=== PATIENT | female | born 1955 | race Caucasian/White ===

== ENCOUNTER 2021-04-29 23:57 | Inpatient (IN) | payer MEDICAID ==
[~2021-04-29] VITALS: Ht 167.6 cm; Wt 65.9 kg
[2021-04-30] MEDS ORDERED: ondansetron/PF 4mg/2ml inj IV ONE (00:10)
[2021-04-30] MEDS: morphine 4 MG/ML inj SYRINge IV PRN ×3 (00:17→06:27)
[2021-04-30 00:42] LABS: BASOPHILS % (AUTO) 0.3 % (0-1); EOSINOPHILS # (AUTO) 0.1 X10'3 (0-0.9); EOSINOPHILS % (AUTO) 0.6 % (0-6); HEMATOCRIT 46.4 % (35.0-45.0); HEMOGLOBIN 16.3 g/dl (12.0-16.0); LYMPHOCYTES # (AUTO) 1.7 X10'3 (1.1-4.8); LYMPHOCYTES % (AUTO) 17.9 % (21-51); MEAN CORPUSCULAR HEMOGLOBIN 34.4 PG (27.0-31.0); MEAN CORPUSCULAR HGB CONC 35.2 g/dL (33.0-36.5); MEAN CORPUSCULAR VOLUME 97.8 FL (78-98); MEAN PLATELET VOLUME 8.4 FL (7.4-10.4); MONOCYTES # (AUTO) 0.5 X10'3 (0-0.9); MONOCYTES % (AUTO) 5.4 % (2-12); NEUTROPHILS # (AUTO) 7.1 X10'3 (1.8-7.7); NEUTROPHILS % (AUTO) 75.8 % (42-75); PLATELET COUNT 243 X10'3 (140-440); RED BLOOD COUNT 4.74 X10'6 (4.20-5.60); RED CELL DISTRIBUTION WIDTH 14.5 % (11.5-14.5); WHITE BLOOD COUNT 9.4 X10'3 (4.5-11.0)
[2021-04-30 00:54] LABS: ALANINE AMINOTRANSFERASE 28 U/L (12-78); ALBUMIN 3.7 G/DL (3.4-5.0); ALKALINE PHOSPHATASE 105 IU/L (46-116); ANION GAP 15 (8-16); ASPARTATE AMINO TRANSFERASE 22 U/L (10-37); BILIRUBIN,TOTAL 0.4 MG/DL (0.1-1.0); BLOOD UREA NITROGEN 4 MG/DL (7-18); BUN/CREATININE RATIO 7.1 (6.6-38.0); CALCIUM 8.3 MG/DL (8.5-10.1); CHLORIDE 98 MMOL/L (99-107); CREATININE 0.56 MG/DL (0.40-0.90); GLUCOSE 88 MG/DL (70-104); POTASSIUM 3.5 MMOL/L (3.5-5.1); SODIUM 133 MMOL/L (135-145); TOTAL CARBON DIOXIDE 20.5 MMOL/L (24-32); TOTAL PROTEIN 7.3 G/DL (6.4-8.2); eGFR > 90 ML/MIN
[2021-04-30] MEDS ORDERED: morphine 2 MG/ML inj. syringe IV PRN (01:35)
[2021-04-30] MEDS ORDERED: acetaminophen 325mg tablet PO PRN (01:35)
[2021-04-30 02:13] LABS: CLARITY,URINE CLEAR (Clear); COLOR,URINE STRAW (Yellow); GLUCOSE, URINE NEGATIVE (Neg); KETONES,URINE NEGATIVE (Neg); LEUKOCYTE ESTERASE ,URINE NEGATIVE (Neg); NITRITES, URINE NEGATIVE (Neg); OCCULT BLOOD,URINE SMALL (Neg); PROTEIN,URINE NEGATIVE (Neg); UROBILINOGEN,URINE 0.2 E.U/dL (0.2-1.0)
[2021-04-30 02:15] LABS: UA COLLECTION TYPE STRAIGHT CATH
[2021-04-30 03:52] LABS: RBC,URINE 0-2 /HPF (0-2); WBC,URINE NONE SEEN /HPF (0-4)
[2021-04-30 03:53] LABS: BACTERIA,URINE NONE SEEN /HPF (Neg); SQUAMOUS EPITHELIAL CELL,UR FEW /LPF (FEW)
[2021-04-30] MEDS ORDERED: PRE5T PO (05:28)
--- NOTE | 2021-04-30 06:54 | NUR ---
Patient in room ED 5. I have received report from Brianna SHELL and had the opportunity to ask questions and assume patient care.
[2021-04-30 07:30] VITALS: BP 110/63
[2021-04-30] MEDS: docusate sod 100mg capsule PO SCH ×2 (08:00→19:08)
[2021-04-30] MEDS: HYDROcodone/acetaminophen 5mg/325mg tablet PO PRN (08:58)
[2021-04-30 10:00] VITALS: BP 105/57
[2021-04-30] MEDS: morphine 2 MG/ML inj. syringe IV PRN ×3 (10:58→21:45)
[2021-04-30] MEDS ORDERED: ALB0.5UD IH (11:40)
--- NOTE | 2021-04-30 11:42 | NUR ---
PAGER ID: [phone] MESSAGE: rey monroy [phone] RE: Dionne Cedillo [id number]. Pt daughter requesting coag before surgery. Thank you
[2021-04-30] MEDS ORDERED: haloperidol lactate 5mg/ml inj IM PRN (11:55)
[2021-04-30] MEDS ORDERED: LORazepam 1 MG tablet PO PRN (11:55)
[2021-04-30] MEDS ORDERED: dextrose 50%-water 50ml dispensing syringe IV PRN (11:55)
[2021-04-30] MEDS ORDERED: thiamine 100mg/ml 2ml inj. IV ONE (11:55)
[2021-04-30] MEDS ORDERED: LORazepam 2 mg/ml vial IV PRN (11:55)
[2021-04-30] MEDS ORDERED: haloperidol 5mg tablet PO PRN (11:55)
[2021-04-30] MEDS ORDERED: thiamine inj. 100 MG in normal saline 100ml IV soln 99 ML IV ONE (12:05)
[2021-04-30] MEDS: nicotine 14mg patch - 24hr TD SCH (12:36)
[2021-04-30 12:53] LABS: PARTIAL THROMBOPLASTIN TIME 29 SECONDS (22-32)
[2021-04-30] MEDS ORDERED: thiamine 100mg tablet PO ONE (12:55)
[2021-04-30] MEDS: HYDROcodone/acetaminophen 10/325mg tab PO PRN ×2 (13:00→19:08)
[2021-04-30 13:07] VITALS: BP 115/67
[2021-04-30] MEDS ORDERED: ringers solution, lactated 500ml IV solution IV ONE (13:20)
[2021-04-30] MEDS: ringers solution, lacted 1,000 ML IV SCH (14:00)
[2021-04-30] MEDS ORDERED: ondansetron/PF 4mg/2ml inj IV PRN (16:40)
--- NOTE | 2021-04-30 17:26 | NUR ---
Pt states she is very tired. While lying still pts pain is tolerable. If patient moves slightly or coughs patient is in severe pain. OR charge nurse notified primary rn patient is now scheduled for surgery tomorrow 05/01 @ 0900. Pt has dinner tray ordered, NPO at midnight. Will continue to monitor patient closely.
[2021-04-30 18:00] VITALS: BP 117/58
--- NOTE | 2021-04-30 18:10 | NUR ---
Patient in room ORTHO 4024. I have received report from Jazzy SHELL and had the opportunity to ask questions and assume patient care.
--- NOTE | 2021-04-30 18:10 | NUR ---
Problems reprioritized. Patient report given, questions answered & plan of care reviewed with Heaven SHELL.
[2021-04-30 22:00] VITALS: BP 116/63
[2021-05-01] VITALS (15 sets, daily range): BP systolic 103–156; BP diastolic 49–71
[2021-05-01] MEDS: HYDROcodone/acetaminophen 10/325mg tab PO PRN ×4 (01:08→23:40)
[2021-05-01] MEDS: ringers solution, lacted 1,000 ML IV SCH ×3 (01:09→23:35)
[2021-05-01] MEDS: morphine 2 MG/ML inj. syringe IV PRN (03:12)
--- NOTE | 2021-05-01 06:36 | NUR ---
Problems reprioritized. Patient report given, questions answered & plan of care reviewed with Page SHELL and Wale SHELL.
[2021-05-01] MEDS: pantoprazole 40mg Tablet.DR PO SCH (06:58)
[2021-05-01 07:53] LABS: BASOPHILS % (AUTO) 0.5 % (0-1); EOSINOPHILS # (AUTO) 0.2 X10'3 (0-0.9); EOSINOPHILS % (AUTO) 2.2 % (0-6); HEMATOCRIT 46.5 % (35.0-45.0); HEMOGLOBIN 15.7 g/dl (12.0-16.0); LYMPHOCYTES # (AUTO) 2.1 X10'3 (1.1-4.8); LYMPHOCYTES % (AUTO) 25.6 % (21-51); MEAN CORPUSCULAR HEMOGLOBIN 33.5 PG (27.0-31.0); MEAN CORPUSCULAR HGB CONC 33.8 g/dL (33.0-36.5); MEAN CORPUSCULAR VOLUME 99.1 FL (78-98); MONOCYTES # (AUTO) 0.6 X10'3 (0-0.9); MONOCYTES % (AUTO) 7.2 % (2-12); NEUTROPHILS # (AUTO) 5.3 X10'3 (1.8-7.7); NEUTROPHILS % (AUTO) 64.5 % (42-75); PLATELET COUNT 212 X10'3 (140-440); RED BLOOD COUNT 4.69 X10'6 (4.20-5.60); RED CELL DISTRIBUTION WIDTH 14.5 % (11.5-14.5); WHITE BLOOD COUNT 8.3 X10'3 (4.5-11.0)
[2021-05-01] MEDS: docusate sod 100mg capsule PO SCH ×2 (08:00→20:00)
[2021-05-01 08:26] LABS: ALBUMIN 2.8 G/DL (3.4-5.0); ANION GAP 9 (8-16); BLOOD UREA NITROGEN 6 MG/DL (7-18); CALCIUM 8.4 MG/DL (8.5-10.1); CHLORIDE 105 MMOL/L (99-107); GLUCOSE 82 MG/DL (70-104); POTASSIUM 3.6 MMOL/L (3.5-5.1); SODIUM 140 MMOL/L (135-145); TOTAL CARBON DIOXIDE 26.2 MMOL/L (24-32); eGFR > 90 ML/MIN
[2021-05-01] MEDS ORDERED: dexamethasone sod phosphate 10mg/ml inj ONE (08:45)
[2021-05-01] MEDS ORDERED: desflurane 240ml liquid inh. IH ONE (08:45)
[2021-05-01] MEDS ORDERED: sevoflurane 250ml liquid IH ONE (08:45)
[2021-05-01] MEDS ORDERED: fentaNYL/PF 50MCG/1 ML 2ML syringe ONE (08:47)
[2021-05-01] MEDS ORDERED: midazolam 1 mg/ML 2ml injection ONE (08:48)
[2021-05-01] MEDS ORDERED: ceFAZolin 1000mg inj ONE ×2 (08:55)
[2021-05-01] MEDS ORDERED: propofol inj 20 ML IV ONE (09:06)
[2021-05-01] MEDS ORDERED: LIDOcaine 2% (20mg/ml) 5ml vial ONE (09:06)
[2021-05-01] MEDS ORDERED: ondansetron/PF 4mg/2ml inj ONE (09:07)
[2021-05-01] MEDS ORDERED: ringers solution, lacted 1,000 ML IV SCH (09:25)
[2021-05-01] MEDS ORDERED: fentaNYL/PF 50MCG/1 ML 2ML syringe IV PRN ×2 (09:25)
[2021-05-01] MEDS ORDERED: ondansetron/PF 4mg/2ml inj IV PRN (09:25)
[2021-05-01] MEDS ORDERED: morphine 2 MG/ML inj. syringe IV PRN (09:25)
[2021-05-01] MEDS ORDERED: morphine 4 MG/ML inj SYRINge IV PRN (09:25)
[2021-05-01] MEDS ORDERED: labetalol 20mg/4ml (5mg/ml) syringe IV PRN (09:25)
[2021-05-01] MEDS ORDERED: hydrALAZINE 20mg/ml inj. IV PRN (09:25)
[2021-05-01] MEDS ORDERED: ROPIVAcaine 0.5% (5mg/ml) 30ml vial ONE ×2 (09:34→09:55)
--- NOTE | 2021-05-01 10:06 | NUR ---
Received from OR via , accompanied by Anesthesiologist DR PADGETT and report given by Anesthesiolgist. AWAKENS TO VOICE. VITALS STABLE. DRESSING DI. JACQUELYN PAIN. STONE WITH CLEAR URINE.
--- NOTE | 2021-05-01 10:56 | NUR ---
Report called to receiving nurse. Transferred via [facility] . Special Issues communicated to receiving nurse.AWAKE AND ORIENTED. VITALS STABLE. DRESSING DI. JACQUELYN PAIN. TO ORTHO RM 4024A AT THIS TIME.
[2021-05-01] MEDS: nicotine 14mg patch - 24hr TD SCH (11:14)
[2021-05-01] MEDS ORDERED: albuterol 2.5 MG/3 ML nebule NEB PRN (12:05)
[2021-05-01] MEDS: predniSONE 5mg tablet PO SCH (12:29)
[2021-05-01] MEDS: ceFAZolin/D5W- 1GM premix 50 ML IV SCH ×2 (16:32→23:36)
--- NOTE | 2021-05-01 17:10 | NUR ---
Pt refused accucheck stated she is not diabetic and does not need it, no DM in her family. Explained it is for ETOH protocol, pt stated she doesn't believe it is needed. Addendum: 05/01/21 at 1711 by Stephanie Kendall RN Amended: Links added.
--- NOTE | 2021-05-01 18:51 | NUR ---
Patient in room ORTHO 4024. I have received report from Austen Rn's and had the opportunity to ask questions and assume patient care.
--- NOTE | 2021-05-01 20:12 | NUR ---
patient refusing colace. States Hx of collitis and is not able to take colace without having "blowouts"
[2021-05-02 02:00] VITALS: BP 106/66
[2021-05-02 05:00] VITALS: BP 109/52
[2021-05-02 05:59] LABS: BASOPHILS % (AUTO) 0.6 % (0-1); EOSINOPHILS # (AUTO) 0.1 X10'3 (0-0.9); EOSINOPHILS % (AUTO) 0.6 % (0-6); HEMATOCRIT 42.8 % (35.0-45.0); HEMOGLOBIN 14.3 g/dl (12.0-16.0); LYMPHOCYTES # (AUTO) 1.7 X10'3 (1.1-4.8); LYMPHOCYTES % (AUTO) 18.8 % (21-51); MEAN CORPUSCULAR HEMOGLOBIN 33.7 PG (27.0-31.0); MEAN CORPUSCULAR HGB CONC 33.5 g/dL (33.0-36.5); MEAN CORPUSCULAR VOLUME 100.7 FL (78-98); MEAN PLATELET VOLUME 9.4 FL (7.4-10.4); MONOCYTES # (AUTO) 0.9 X10'3 (0-0.9); MONOCYTES % (AUTO) 10.1 % (2-12); NEUTROPHILS # (AUTO) 6.3 X10'3 (1.8-7.7); NEUTROPHILS % (AUTO) 69.9 % (42-75); PLATELET COUNT 221 X10'3 (140-440); RED BLOOD COUNT 4.25 X10'6 (4.20-5.60); RED CELL DISTRIBUTION WIDTH 14.4 % (11.5-14.5)
[2021-05-02 06:05] LABS: ALBUMIN 2.4 G/DL (3.4-5.0); ANION GAP 8 (8-16); BLOOD UREA NITROGEN 6 MG/DL (7-18); BUN/CREATININE RATIO 10.7 (6.6-38.0); CALCIUM 8.3 MG/DL (8.5-10.1); CHLORIDE 104 MMOL/L (99-107); CREATININE 0.56 MG/DL (0.40-0.90); GLUCOSE 97 MG/DL (70-104); POTASSIUM 3.6 MMOL/L (3.5-5.1); SODIUM 141 MMOL/L (135-145); eGFR > 90 ML/MIN
[2021-05-02] MEDS: HYDROcodone/acetaminophen 10/325mg tab PO PRN ×3 (06:23→19:50)
--- NOTE | 2021-05-02 07:12 | NUR ---
Problems reprioritized. Patient report given, questions answered & plan of care reviewed with SADIE SHELL.
[2021-05-02] MEDS: predniSONE 5mg tablet PO SCH (07:49)
[2021-05-02] MEDS: pantoprazole 40mg Tablet.DR PO SCH (07:49)
[2021-05-02] MEDS: ceFAZolin/D5W- 1GM premix 50 ML IV SCH ×2 (07:50→17:23)
[2021-05-02] MEDS: nicotine 14mg patch - 24hr TD SCH (07:50)
[2021-05-02] MEDS: docusate sod 100mg capsule PO SCH ×2 (07:51→19:52)
[2021-05-02 10:00] VITALS: BP 105/60
[2021-05-02 14:00] VITALS: BP 136/70
[2021-05-02] MEDS: ringers solution, lacted 1,000 ML IV SCH (17:23)
[2021-05-02 18:00] VITALS: BP 103/63
--- NOTE | 2021-05-02 20:32 | NUR ---
1800 Patient in room ORTHO 4024. I have received report from SADIE SHELL and had the opportunity to ask questions and assume patient care.
[2021-05-02 22:00] VITALS: BP 103/56
[2021-05-03] MEDS: HYDROcodone/acetaminophen 10/325mg tab PO PRN ×4 (02:37→20:01)
[2021-05-03 06:30] VITALS: BP 108/62
[2021-05-03 06:43] LABS: BASOPHILS # (AUTO) 0.1 X10'3 (0-0.2); BASOPHILS % (AUTO) 0.8 % (0-1); EOSINOPHILS # (AUTO) 0.1 X10'3 (0-0.9); EOSINOPHILS % (AUTO) 1.5 % (0-6); HEMATOCRIT 40.5 % (35.0-45.0); HEMOGLOBIN 13.7 g/dl (12.0-16.0); LYMPHOCYTES # (AUTO) 2.6 X10'3 (1.1-4.8); LYMPHOCYTES % (AUTO) 26.4 % (21-51); MEAN CORPUSCULAR HEMOGLOBIN 33.6 PG (27.0-31.0); MEAN CORPUSCULAR HGB CONC 33.9 g/dL (33.0-36.5); MEAN CORPUSCULAR VOLUME 98.9 FL (78-98); MEAN PLATELET VOLUME 9.3 FL (7.4-10.4); MONOCYTES # (AUTO) 0.9 X10'3 (0-0.9); MONOCYTES % (AUTO) 9.2 % (2-12); NEUTROPHILS # (AUTO) 6.1 X10'3 (1.8-7.7); NEUTROPHILS % (AUTO) 62.1 % (42-75); PLATELET COUNT 241 X10'3 (140-440); RED BLOOD COUNT 4.09 X10'6 (4.20-5.60); RED CELL DISTRIBUTION WIDTH 14.6 % (11.5-14.5); WHITE BLOOD COUNT 9.8 X10'3 (4.5-11.0)
[2021-05-03 06:46] LABS: ALBUMIN 2.3 G/DL (3.4-5.0); ANION GAP 8 (8-16); BLOOD UREA NITROGEN 5 MG/DL (7-18); BUN/CREATININE RATIO 8.9 (6.6-38.0); CALCIUM 8.3 MG/DL (8.5-10.1); CHLORIDE 106 MMOL/L (99-107); CREATININE 0.56 MG/DL (0.40-0.90); GLUCOSE 94 MG/DL (70-104); POTASSIUM 3.2 MMOL/L (3.5-5.1); SODIUM 142 MMOL/L (135-145); TOTAL CARBON DIOXIDE 27.9 MMOL/L (24-32); eGFR > 90 ML/MIN
--- NOTE | 2021-05-03 06:58 | NUR ---
Problems reprioritized. Patient report given, questions answered & plan of care reviewed with FLORINA SHELL.
[2021-05-03] MEDS: docusate sod 100mg capsule PO SCH ×2 (08:00→19:56)
[2021-05-03] MEDS: predniSONE 5mg tablet PO SCH (09:18)
[2021-05-03] MEDS: pantoprazole 40mg Tablet.DR PO SCH (09:19)
[2021-05-03] MEDS: nicotine 14mg patch - 24hr TD SCH (09:20)
[2021-05-03 10:00] VITALS: BP 139/88
--- NOTE | 2021-05-03 10:49 | NUR ---
PAGER ID: [phone] MESSAGE: [phone] Dionne Cedillo 3.2 Need replacement orders please
[2021-05-03 18:00] VITALS: BP 100/60
--- NOTE | 2021-05-03 18:17 | NUR ---
Report to Dacia SHELL
[2021-05-03] MEDS: ringers solution, lacted 1,000 ML IV SCH (19:20)
[2021-05-03] MEDS ORDERED: magnesium Cl slow-release 64mg tablet PO PRN (19:50)
[2021-05-03] MEDS ORDERED: potassium Cl 40MEQ/1/2NS 520ml 520 ML IV PRN (19:50)
[2021-05-03] MEDS ORDERED: magnesium 4gm in 100ml NS 100 ML IV PRN (19:50)
[2021-05-03] MEDS ORDERED: potassium Cl 20 mEq SR tablet PO PRN (19:50)
[2021-05-03] MEDS: potassium Cl 20 mEq SR tablet PO PRN ×2 (19:56→23:58)
[2021-05-03] MEDS: K and/or MAG REPLACEMENT MC SCH (20:03)
[2021-05-03 22:00] VITALS: BP 113/64
[2021-05-04] MEDS: HYDROcodone/acetaminophen 10/325mg tab PO PRN ×3 (00:01→12:23)
[2021-05-04 05:46] LABS: BASOPHILS # (AUTO) 0.1 X10'3 (0-0.2); BASOPHILS % (AUTO) 0.9 % (0-1); EOSINOPHILS # (AUTO) 0.3 X10'3 (0-0.9); EOSINOPHILS % (AUTO) 2.8 % (0-6); HEMATOCRIT 42.9 % (35.0-45.0); HEMOGLOBIN 14.4 g/dl (12.0-16.0); LYMPHOCYTES # (AUTO) 3.1 X10'3 (1.1-4.8); LYMPHOCYTES % (AUTO) 33.3 % (21-51); MEAN CORPUSCULAR HEMOGLOBIN 33.7 PG (27.0-31.0); MEAN CORPUSCULAR HGB CONC 33.5 g/dL (33.0-36.5); MEAN CORPUSCULAR VOLUME 100.9 FL (78-98); MEAN PLATELET VOLUME 8.6 FL (7.4-10.4); MONOCYTES % (AUTO) 10.5 % (2-12); NEUTROPHILS # (AUTO) 4.9 X10'3 (1.8-7.7); NEUTROPHILS % (AUTO) 52.5 % (42-75); PLATELET COUNT 268 X10'3 (140-440); RED BLOOD COUNT 4.25 X10'6 (4.20-5.60); RED CELL DISTRIBUTION WIDTH 14.6 % (11.5-14.5); WHITE BLOOD COUNT 9.3 X10'3 (4.5-11.0)
[2021-05-04 06:00] VITALS: BP 104/59
[2021-05-04 06:06] LABS: ALBUMIN 2.5 G/DL (3.4-5.0); ANION GAP 10 (8-16); BLOOD UREA NITROGEN 6 MG/DL (7-18); BUN/CREATININE RATIO 10.3 (6.6-38.0); CALCIUM 8.9 MG/DL (8.5-10.1); CHLORIDE 106 MMOL/L (99-107); CREATININE 0.58 MG/DL (0.40-0.90); GLUCOSE 86 MG/DL (70-104); MAGNESIUM 1.8 MG/DL (1.5-2.4); POTASSIUM 4.1 MMOL/L (3.5-5.1); SODIUM 142 MMOL/L (135-145); TOTAL CARBON DIOXIDE 26.4 MMOL/L (24-32); eGFR > 90 ML/MIN
--- NOTE | 2021-05-04 06:40 | NUR ---
Problems reprioritized. Patient report given, questions answered & plan of care reviewed with SUMAYA Aggarwal.
[2021-05-04] MEDS: pantoprazole 40mg Tablet.DR PO SCH (07:30)
[2021-05-04] MEDS: K and/or MAG REPLACEMENT MC SCH ×2 (08:00→20:00)
[2021-05-04] MEDS: predniSONE 5mg tablet PO SCH (09:02)
[2021-05-04] MEDS: docusate sod 100mg capsule PO SCH ×2 (09:02→19:54)
[2021-05-04] MEDS: nicotine 14mg patch - 24hr TD SCH (09:03)
--- NOTE | 2021-05-04 10:26 | NUR ---
Initial: Pt admit DX R hip fx s/p OR repair this admit. PO 25-50% avg regular diet post-op partially meeting needs. Noted LBM 7/ receiving routine colace w/ 4 days constipation. Pt seen by RD for written/verbal high protein ed w/ RD contact information and ONS coupons provided. Pt reports hx colitis past '30 years' does not drink milk and doesn't eat eggs, gravies, and nuts/seeds. Dietary notified of preferences. Pt is agreeable to chocolate ensure enlive TIDWM for protein/kcals post-op; MD notified. Will continue to monitor for additional protein/kcal needs post-op. Rec: 1. continue regular diet; honor pt food preferences w/ colitis hx; see subjective 2. chocolate ensure enlive TIDWM 3. routine bowel care 4. scaled wt this admit Addendum: 05/04/21 at [address] Amended: Links added.
[2021-05-04] MEDS: lactose-reduced food (Ensure Enlive) - 237ml bottle PO SCH ×2 (13:00→18:00)
[2021-05-04 18:00] VITALS: BP 111/64
[2021-05-04 22:00] VITALS: BP 114/72
[2021-05-05 06:00] VITALS: BP 110/73
[2021-05-05 07:15] LABS: BASOPHILS # (AUTO) 0.1 X10'3 (0-0.2); BASOPHILS % (AUTO) 0.6 % (0-1); EOSINOPHILS # (AUTO) 0.2 X10'3 (0-0.9); EOSINOPHILS % (AUTO) 2.1 % (0-6); HEMATOCRIT 43.7 % (35.0-45.0); HEMOGLOBIN 14.8 g/dl (12.0-16.0); LYMPHOCYTES # (AUTO) 1.8 X10'3 (1.1-4.8); LYMPHOCYTES % (AUTO) 22.3 % (21-51); MEAN CORPUSCULAR HEMOGLOBIN 33.3 PG (27.0-31.0); MEAN CORPUSCULAR HGB CONC 33.9 g/dL (33.0-36.5); MEAN CORPUSCULAR VOLUME 98.2 FL (78-98); MEAN PLATELET VOLUME 8.5 FL (7.4-10.4); MONOCYTES # (AUTO) 0.9 X10'3 (0-0.9); MONOCYTES % (AUTO) 10.7 % (2-12); NEUTROPHILS # (AUTO) 5.2 X10'3 (1.8-7.7); NEUTROPHILS % (AUTO) 64.3 % (42-75); PLATELET COUNT 348 X10'3 (140-440); RED BLOOD COUNT 4.45 X10'6 (4.20-5.60); RED CELL DISTRIBUTION WIDTH 14.2 % (11.5-14.5); WHITE BLOOD COUNT 8.1 X10'3 (4.5-11.0)
[2021-05-05 07:17] LABS: ALBUMIN 2.6 G/DL (3.4-5.0); ANION GAP 11 (8-16); BLOOD UREA NITROGEN 7 MG/DL (7-18); BUN/CREATININE RATIO 11.9 (6.6-38.0); CHLORIDE 105 MMOL/L (99-107); CREATININE 0.59 MG/DL (0.40-0.90); GLUCOSE 100 MG/DL (70-104); MAGNESIUM 1.9 MG/DL (1.5-2.4); POTASSIUM 3.9 MMOL/L (3.5-5.1); SODIUM 141 MMOL/L (135-145); TOTAL CARBON DIOXIDE 24.8 MMOL/L (24-32); eGFR > 90 ML/MIN
[2021-05-05] MEDS: K and/or MAG REPLACEMENT MC SCH ×2 (08:00→20:00)
[2021-05-05] MEDS: predniSONE 5mg tablet PO SCH (09:25)
[2021-05-05] MEDS: HYDROcodone/acetaminophen 10/325mg tab PO PRN ×3 (09:25→20:25)
[2021-05-05] MEDS: nicotine 14mg patch - 24hr TD SCH (09:26)
[2021-05-05] MEDS: pantoprazole 40mg Tablet.DR PO SCH (09:26)
[2021-05-05] MEDS: docusate sod 100mg capsule PO SCH ×2 (09:28→20:00)
[2021-05-05] MEDS: LORazepam 0.5 MG tablet PO PRN ×2 (09:31→20:25)
[2021-05-05 11:00] VITALS: BP 110/73
[2021-05-05 18:00] VITALS: BP 109/63
[2021-05-05] MEDS: lactose-reduced food (Ensure Enlive) - 237ml bottle PO SCH (18:00)
--- NOTE | 2021-05-05 18:30 | NUR ---
Patient in room ORTHO 4020. I have received report from Thelma, and had the opportunity to ask questions and assume patient care.
[2021-05-05 22:00] VITALS: BP 104/61
[2021-05-06] MEDS: LORazepam 0.5 MG tablet PO PRN ×2 (03:30→21:52)
[2021-05-06] MEDS: HYDROcodone/acetaminophen 10/325mg tab PO PRN (03:30)
[2021-05-06 06:00] VITALS: BP 114/63
--- NOTE | 2021-05-06 06:36 | NUR ---
Problems reprioritized. Patient report given, questions answered & plan of care reviewed with Ashleigh.
--- NOTE | 2021-05-06 06:43 | NUR ---
Patient in room ORTHO 4020. I have received report from Tanika SHELL and had the opportunity to ask questions and assume patient care.
[2021-05-06 06:47] LABS: MAGNESIUM 1.8 MG/DL (1.5-2.4); POTASSIUM 3.6 MMOL/L (3.5-5.1)
[2021-05-06] MEDS: docusate sod 100mg capsule PO SCH ×2 (08:00→20:00)
[2021-05-06] MEDS: lactose-reduced food (Ensure Enlive) - 237ml bottle PO SCH ×3 (08:00→18:00)
[2021-05-06] MEDS: K and/or MAG REPLACEMENT MC SCH ×2 (08:00→20:00)
[2021-05-06] MEDS: pantoprazole 40mg Tablet.DR PO SCH (09:07)
[2021-05-06] MEDS: predniSONE 5mg tablet PO SCH (09:08)
[2021-05-06] MEDS: nicotine 14mg patch - 24hr TD SCH (09:09)
[2021-05-06 10:00] VITALS: BP 103/58
[2021-05-06] MEDS: HYDROcodone/acetaminophen 5mg/325mg tablet PO PRN ×3 (11:18→21:51)
--- NOTE | 2021-05-06 12:16 | NUR ---
Phone call from pt's daughter, concerned stating she thought someone told her mother/pt that she was being D/C'd home tomorrow. I spoke with CM and clarified, the plan has been and still is for pt to d/c to [facility] tomorrow. Pt informed. Will continue to monitor.
--- NOTE | 2021-05-06 16:19 | NUR ---
PAGER ID: [phone] MESSAGE: re: Room 4020B - Dionne Cedillo May I d/c pt's blood sugar checks being done per ETOH protocol? Thank you, Sanna [phone] Pt refused 1400 blood sugar check. Will continue to monitor.
[2021-05-06 18:00] VITALS: BP 126/71
--- NOTE | 2021-05-06 18:21 | NUR ---
Problems reprioritized. Patient report given, questions answered & plan of care reviewed with Brenda SHELL.
[2021-05-06 22:00] VITALS: BP 116/68
[2021-05-07 06:17] VITALS: BP 94/58
--- NOTE | 2021-05-07 06:25 | NUR ---
Patient in room ORTHO 4020. I have received report from Roz SHELL and had the opportunity to ask questions and assume patient care.
[2021-05-07 07:03] LABS: MAGNESIUM 1.9 MG/DL (1.5-2.4); POTASSIUM 3.6 MMOL/L (3.5-5.1)
[2021-05-07] MEDS: pantoprazole 40mg Tablet.DR PO SCH (07:47)
[2021-05-07] MEDS: nicotine 14mg patch - 24hr TD SCH (07:47)
[2021-05-07] MEDS: predniSONE 5mg tablet PO SCH (07:47)
[2021-05-07] MEDS: simethicone 80mg chew tab PO PRN ×2 (07:48→17:29)
[2021-05-07] MEDS: lactose-reduced food (Ensure Enlive) - 237ml bottle PO SCH ×2 (07:49→12:29)
[2021-05-07] MEDS: docusate sod 100mg capsule PO SCH (07:49)
[2021-05-07] MEDS: K and/or MAG REPLACEMENT MC SCH (08:00)
[2021-05-07 10:04] VITALS: BP 127/66
[2021-05-07] MEDS: HYDROcodone/acetaminophen 5mg/325mg tablet PO PRN (16:27)
--- NOTE | 2021-05-07 17:17 | NUR ---
Called [facility] and gave report to an Angela.
--- NOTE | 2021-05-07 18:00 | NUR ---
Pt was transferred to [facility] by [facility] in a medivan with all belongings with her and accompanied by [employer] [employer] personnel.
== END 2021-05-07 18:10 | DRG 301 ==
LOC: ER 23:58 → ED HOLD 04-30 01:31 → ORTHO 4S 04-30 07:15
PROVIDERS: ADMIT Internal Medicine; ATTEND Internal Medicine
PROC: 0SRR0JA Replacement of Right Hip Joint, Femoral Surface with Synthetic Substitute, Uncemented, Open Approach (ICD-10-PCS; principal; 2021-05-01 08:45)
DX: S72.001A Fracture of unspecified part of neck of right femur, initial encounter for closed fracture (principal); E87.6 Hypokalemia; F17.210 Nicotine dependence, cigarettes, uncomplicated; F41.9 Anxiety disorder, unspecified; J44.9 Chronic obstructive pulmonary disease, unspecified; K58.9 Irritable bowel syndrome, unspecified; W18.39XA Other fall on same level, initial encounter; Z85.41 Personal history of malignant neoplasm of cervix uteri; Z79.52 Long term (current) use of systemic steroids; Y93.89 Activity, other specified; Y92.89 Other specified places as the place of occurrence of the external cause; Y99.8 Other external cause status
CPT/HCPCS: 36415; 71045; 73502; 80048; 80053; 81001; 81479; 82948; 83735; 83891; 83894; 83898; 84132; 85025; 85610; 85730; 86885; 86900; 86901; 87081; 93005; 96374; 97110; 97116; 97161; 97530; 99285; A4215; A4618; A6454; A7000; A9272; C1776; G0378; J0690; J1100; J2001; J2250; J2270; J2405; J2704; J2795; J3010; J7120; J7512

== ENCOUNTER 2023-04-22 12:09 | Emergency (ER) | payer MEDICARE, MEDICAID ==
[~2023-04-22] VITALS: Ht 165.1 cm; Wt 50.0 kg
[~2023-04-22 12:09] MED LIST: ALB0.5UD IH; PRE5T PO
[2023-04-22 12:20] VITALS: BP 149/80
[2023-04-22] MEDS ORDERED: morphine 4 MG/ML inj SYRINge IM ONE (13:35)
[2023-04-22] MEDS ORDERED: ondansetron 4mg rapidly disintigrating tab PO ONE (13:35)
[2023-04-22] MEDS ORDERED: HYDR-3965 PO (14:24)
[2023-04-22] MEDS ORDERED: ONDA4TAB12 PO (14:31)
[2023-04-22] MEDS ORDERED: HYDROcodone/acetaminophen 5mg/325mg tablet PO ONE (14:40)
== END 2023-04-22 14:54 | disposition home or self-care (01) ==
LOC: ER 12:10
DX: S42.292A Other displaced fracture of upper end of left humerus, initial encounter for closed fracture (principal); W01.0XXA Fall on same level from slipping, tripping and stumbling without subsequent striking against object, initial encounter; S09.90XA Unspecified injury of head, initial encounter; S16.1XXA Strain of muscle, fascia and tendon at neck level, initial encounter; Y93.89 Activity, other specified; Y92.89 Other specified places as the place of occurrence of the external cause; Y99.8 Other external cause status
CPT/HCPCS: 70450; 72125; 73060; 96372; 99285; J2270; A4565; A6449